=== PATIENT | female | born 1970 | race Caucasian/White ===

== ENCOUNTER 2017-07-30 15:17 | Emergency (ER) | payer BC ==
--- NOTE | 2017-07-30 15:38 | ERNOTE ---
Back Pain ER HPI Time Seen by Provider: 07/30/17 15:34 Source: patient Exam Limitations: no limitations Immunizations: IMMUNIZATION HX Immunizations Up to Date Yes History of Influenza Vaccine No Hx Pneumococcal Vaccination No Allergies/Adverse Reactions: Allergies Sulfa (Sulfonamide Antibiotics) Allergy (Verified 07/30/17 15:32) Home Medications: HOME MEDICATIONS Albuterol Sulfate [Ventolin Hfa] 2 puff IH Q4H PRN 12/29/14 [Last Taken Unknown] Ciprofloxacin HCl [Cipro] 500 mg PO BID #20 tablet 07/30/17 [Last Taken Unknown] Ibuprofen 800 mg PO DAILY 07/30/17 [Last Taken Unknown] Nabumetone 750 mg PO DAILY 07/30/17 [Last Taken Unknown] Narrative: Patient is here for left-sided flank pain for 3 days. She states that she is very prone to getting urinating tract infections after sexual activity and she has been sexually active. She denies being as she had a hysterectomy. She has been feeling chills but has had no fevers she denies any nausea or vomiting. She's taken cephalexin 500 mg 2 tablets twice a day for the past 3 days with no improvement of symptoms. Review of Systems - Review of Systems Constitutional: Present: chills EYE: Present: no symptoms reported ENT: Present: no symptoms reported Respiratory: Present: no symptoms reported Cardiology: Present: no symptoms reported Gastrointestinal/Abdominal: Present: no symptoms reported Genitourinary: Present: See HPI, hematuria Skin: Present: no symptoms reported - Patient's Past Medical History Patient History - Medical: ADHD, Depression, GERD, Other Patient History - Cancer: No Hx of Cancer Patient History - Surgical Procedures: Appendectomy, Hysterectomy, T & A - Social History Living Situations: home Psych History: Hx of Anxiety, Hx of Depression - Immunizations Immunizations Up to Date: Yes Hx Pneumococcal Vaccination: No History of Influenza Vaccine: No Physical Exam - Physical Exam General Appearance: Present: wd/wn, alert, no apparent distress Head Exam: Present: normal inspection, no evidence of injury Respiratory: Present: no respiratory distress, normal breath sounds, no accessory muscle use, chest nontender, lungs clear Cardiovascular/Chest: Present: regular rate, rhythm, no murmur, normal peripheral pulses Gastrointestinal/Abdominal: Present: normal bowel sounds Back Exam: Present: normal inspection, other - patient complains that her left lower back is swollen but this examiner does not appreciate any swelling or ecchymosis. She does have left-sided lumbar region tenderness on percussion. She has no CVA tenderness at this time. Neurological Exam: Present: alert, oriented, normal mood/affect ED Progress - Results and Orders Patient's Lab Results:: I have reviewed the patient's lab results. - Vital Signs Patient's Vital Signs:: I have reviewed the patient's vital signs. Vital Signs: Vital Signs 07/30/17 15:19 Temperature 36.6 C Pulse Rate 95 Respiratory 12 Rate Blood Pressure 158/112 O2 Sat by Pulse 100 Oximetry - Progress/Reassessment Chief Complaint: Back Pain Plan - Plan Plan: Patient felt as if she had a urinary tract infection and started her Keflex 3 days ago. Today she noticed that she had left-sided flank pain. Her CT scan does not reveal and nephrolithiasis. At this time I believe this patient may have left-sided pyelonephritis for which I will switch her to Cipro and have her follow-up with her primary care doctor. Departure Clinical Impression: Pyelonephritis - Departure Disposition: Home self-care Condition: Good Instructions: Pyelonephritis, Adult, [id number] Prescriptions: Ciprofloxacin HCl [Cipro] 500 mg PO BID #20 tablet
[2017-07-30 15:52] LABS: Hemoglobin 14.2 gm/dL (12.5-16.0); Mean Cell Volume 86.4 fl (78-100); Mean Corpuscular Hemoglobin 29.2 pg (27-31); Mean Corpuscular Hgb Conc 33.8 g/dl (32-36); Mean Platelet Volume 9.7 fl (6.0-9.5); Neutrophil # 5.6 K/mm3 (1.3-6.0); Neutrophil % 61.4 % (42-75.0); Platelet Count 321 K/mm3 (150-450); Red Blood Count 4.86 M/mm3 (4.2-5.4); White Blood Count 9.1 K/mm3 (4.0-10.5)
[2017-07-30 15:55] LABS: Urine Appearance Slightly Cloudy; Urine Bilirubin Negative (NEGATIVE); Urine Color Yellow; Urine Nitrite Negative (NEGATIVE); Urine Protein Negative (NEGATIVE); Urine Urobilinogen Normal (NORMAL); Urine pH 6.5 pH (5.0-7.0)
[2017-07-30 15:56] LABS: Urine Bacteria None Seen; Urine Blood 150 /ul (NEGATIVE); Urine Ketone 5 mg/dL (NEGATIVE); Urine RBC 0-5 /hpf (0-5); Urine WBC 0-5 /hpf (0-5)
[2017-07-30] MEDS ORDERED: KETOROLAC TROMETHAMINE 60 MG/2 ML VIAL IM ONE ×2 (16:23)
[2017-07-30] MEDS ORDERED: ONDANSETRON HCL/PF 2 MG/ML VIAL ONE (16:48)
[2017-07-30] MEDS ORDERED: ONDANSETRON HCL/PF 2 MG/ML VIAL IM ONE (16:49)
[2017-07-30 16:54] VITALS: BP 152/93
[2017-07-30] MEDS ORDERED: HYDROmorphone HCL 1 MG/ML DISP.SYRIN IV ONE (17:05)
[2017-07-30] MEDS ORDERED: HYDROmorphone HCL 2 MG/ML VIAL ONE ×2 (17:10→17:18)
== END 2017-07-30 17:34 | disposition home or self-care (01) ==
LOC: ER 15:17
DX: N12 Tubulo-interstitial nephritis, not specified as acute or chronic (principal); K21.9 Gastro-esophageal reflux disease without esophagitis; F90.9 Attention-deficit hyperactivity disorder, unspecified type; F32.89 Other specified depressive episodes
CPT/HCPCS: 36415; 74176; 81001; 85025; 96372; 96374; 99284; J2405